=== PATIENT | male | born 1960 | race African-American/Black ===

== ENCOUNTER 2019-01-03 06:18 | Inpatient (IN) | payer MEDICAID, OTHER ==
[~2019-01-03] VITALS: Ht 182.9 cm; Wt 104.3 kg
[~2019-01-03 06:18] MED LIST: LEVO25TA9 PO; LURA80 PO; PALI6 PO
[2019-01-03] MEDS ORDERED: HALOPERIDOL 5 MG TABLET PO ONE (06:45)
[2019-01-03 07:02] LABS: BASOPHILS % (AUTO) 1.3 % (0.0-2.0); HEMATOCRIT 41.3 % (41-53); HEMOGLOBIN 13.8 g/dL (13.5-17.5); LYMPHOCYTES # (AUTO) 1.6 K/uL (1.0-4.8); LYMPHOCYTES % (AUTO) 25.6 % (22.0-44.0); MEAN CORPUSCULAR HEMOGLOBIN 31.1 pg (26.0-34.0); MEAN CORPUSCULAR HGB CONC 33.6 G/dL (31.0-37.0); MEAN CORPUSCULAR VOLUME 93 fL (80-100); MONOCYTES # (AUTO) 0.6 K/uL (0.1-1.0); MONOCYTES % (AUTO) 10.4 % (2.0-9.0); NEUTROPHILS # (AUTO) 3.8 K/uL (1.8-7.7); NEUTROPHILS % (AUTO) 60.7 % (40.0-70.0); PLATELET COUNT (AUTO) 147 K/uL (150-450); RED BLOOD CELL COUNT(AUTO) 4.46 MIL/uL (4.50-5.90); RED CELL DISTRIBUTION WIDTH 14.7 % (11.5-14.5)
[2019-01-03 07:09] LABS: ANION GAP 3 mmol/L (8-16); CALCIUM, TOTAL 8.9 mg/dL (8.8-10.5); CARBON DIOXIDE 32 mmol/L (22-29); CHLORIDE 107 mmol/L (98-107); CREATININE 1.52 mg/dL (0.60-1.30); GLOMERULAR FILTR. RATE CALC 58 mL/min (>60); GLUCOSE,RANDOM 88 mg/dL (70-110); POTASSIUM 4.3 mmol/L (3.5-5.1); SODIUM SERUM 142 mmol/L (136-145); UREA NITROGEN, BLOOD 24 mg/dL (7-18)
[2019-01-03 07:16] LABS: ALANINE AMINOTRANSFERASE 44 U/L (12-78); ALBUMIN 3.8 g/dL (3.4-5.0); ALKALINE PHOSPHATASE 63 U/L (46-116); ASPARTATE AMINOTRANSFERASE 43 U/L (15-37); BILIRUBIN,TOTAL 0.8 mg/dL (0.1-1.0); TOTAL PROTEIN, SERUM 7.7 g/dL (6.4-8.2)
[2019-01-03 09:36] LABS: BARBITURATE SCREEN, URINE NEGATIVE (NEGATIVE); BENZODIAZEPINES SCREEN,URINE NEGATIVE (NEGATIVE); CANNABINOID SCREEN,URINE POSITIVE (NEGATIVE); COCAINE SCREEN,URINE NEGATIVE (NEGATIVE); METHADONE SCREEN, URINE NEGATIVE (NEGATIVE); OPIATE SCREEN,URINE NEGATIVE (NEGATIVE); PHENCYCLIDINE SCREEN,URINE NEGATIVE (NEGATIVE)
[2019-01-03 09:45] LABS: AMPHET/METH SCREEN,URINE POSITIVE (NEGATIVE)
[2019-01-03] MEDS ORDERED: HALOPERIDOL LACTATE 5 MG/ML VIAL IM ONE (10:00)
[2019-01-03] MEDS ORDERED: HALOPERIDOL 5 MG TABLET PO PRN (10:00)
[2019-01-03] MEDS ORDERED: DiphenhydrAMINE HCL 50 MG/ML VIAL IM ONE (10:00)
[2019-01-03] MEDS ORDERED: LORazepam 2 MG/ML VIAL IM ONE (10:00)
[2019-01-03] MEDS ORDERED: ZOLPIDEM TARTRATE 10 MG TABLET PO PRN (10:00)
[2019-01-03] MEDS ORDERED: INFLUENZA VIRUS VACCINE QVS 2019-20 (3YR+)/PF 60 MCG/0.5 ML SYRINGE IM ONE (15:00)
[2019-01-04 08:00] VITALS: BP 150/90
[2019-01-04] MEDS ORDERED: PETROLATUM,WHITE 28 GM JELLY TP PRN (08:15)
[2019-01-04] MEDS ORDERED: ONDANSETRON HCL 4 MG TABLET PO PRN (08:15)
[2019-01-04] MEDS ORDERED: MAG HYDROX/AL HYDROX/SIMETH ES 30 ML SUSPENSION UDCUP PO PRN (08:15)
[2019-01-04] MEDS ORDERED: MAGNESIUM HYDROXIDE SUSPENSION 30 ML UDCUP PO PRN (08:15)
[2019-01-04] MEDS ORDERED: BACITRACIN 28.4 GM OINTMENT TP PRN (08:15)
[2019-01-04] MEDS ORDERED: ALBUTEROL SULFATE HFA 90 MCG/PUFF 8 GM INHALER IH PRN (08:15)
[2019-01-04] MEDS ORDERED: ACETAMINOPHEN 325 MG TABLET PO PRN (08:15)
[2019-01-04] MEDS ORDERED: LOPERAMIDE HCL 2 MG CAPSULE PO PRN (08:15)
[2019-01-04 08:43] LABS: CHOL/HDL RATIO 2.3 (4.2-7.3)
[2019-01-04] MEDS: OMEPRAZOLE 20 MG CAPSULE PO SCH (09:23)
[2019-01-04] MEDS: DOCUSATE SODIUM 100 MG CAPSULE PO SCH (09:23)
[2019-01-04] MEDS: LISINOPRIL 10 MG TABLET PO SCH ×2 (09:23→09:37)
[2019-01-04 16:05] VITALS: BP 129/83
[2019-01-04] MEDS: BENZOCAINE/MENTHOL LOZENGE MM PRN (20:13)
[2019-01-04] MEDS: LURASIDONE HCL 80 MG TABLET PO SCH (20:13)
[2019-01-04 20:34] VITALS: BP 152/84
[2019-01-04] MEDS ORDERED: LURASIDONE HCL 80 MG TABLET PO SCH (21:00)
[2019-01-04] MEDS: PHENOL 1.4% 177 ML SPRAY BOTTLE PO PRN (21:36)
[2019-01-04] MEDS: MAGNESIUM SULFATE 454 GM BOX PO PRN (21:45)
[2019-01-04] MEDS: LORazepam 2 MG TABLET PO PRN (21:50)
[2019-01-04] MEDS: IBUPROFEN 600 MG TABLET PO PRN (21:50)
[2019-01-04 21:53] VITALS: BP 143/107
[2019-01-04] MEDS ORDERED: AZITHROMYCIN 250 MG TABLET PO ONE (22:45)
[2019-01-04 22:57] VITALS: BP 166/100
[2019-01-05 00:32] VITALS: BP 182/112
[2019-01-05] MEDS: CloNIDine HCL 0.1 MG TABLET PO PRN (00:32)
[2019-01-05] MEDS: BENZOCAINE/MENTHOL LOZENGE MM PRN ×2 (01:00→05:04)
[2019-01-05 01:32] VITALS: BP 136/92
[2019-01-05] MEDS: LEVOTHYROXINE SODIUM 50 MCG TABLET PO SCH (07:01)
[2019-01-05 08:16] VITALS: BP 136/80
[2019-01-05] MEDS: OMEPRAZOLE 20 MG CAPSULE PO SCH (08:20)
[2019-01-05] MEDS: LISINOPRIL 10 MG TABLET PO SCH (08:20)
[2019-01-05] MEDS: AZITHROMYCIN 250 MG TABLET PO SCH (08:21)
[2019-01-05] MEDS: DOCUSATE SODIUM 100 MG CAPSULE PO SCH (08:21)
[2019-01-05] MEDS: MAGNESIUM SULFATE 454 GM BOX PO PRN (12:56)
[2019-01-05 16:00] VITALS: BP 133/94
[2019-01-05] MEDS: LURASIDONE HCL 80 MG TABLET PO SCH (21:16)
[2019-01-06] MEDS: LEVOTHYROXINE SODIUM 50 MCG TABLET PO SCH (06:16)
[2019-01-06 06:27] VITALS: BP 130/86
[2019-01-06 08:19] VITALS: BP 133/90
[2019-01-06] MEDS: LISINOPRIL 10 MG TABLET PO SCH (08:19)
[2019-01-06] MEDS: OMEPRAZOLE 20 MG CAPSULE PO SCH (08:19)
[2019-01-06] MEDS: DOCUSATE SODIUM 100 MG CAPSULE PO SCH (08:20)
[2019-01-06] MEDS: AZITHROMYCIN 250 MG TABLET PO SCH (08:20)
[2019-01-06] MEDS: BENZOCAINE/MENTHOL LOZENGE MM PRN (10:51)
[2019-01-06] MEDS: IBUPROFEN 600 MG TABLET PO PRN (14:26)
[2019-01-06] MEDS: PHENOL 1.4% 177 ML SPRAY BOTTLE PO PRN (14:26)
[2019-01-06 16:05] VITALS: BP 148/89
[2019-01-06] MEDS: LURASIDONE HCL 80 MG TABLET PO SCH (21:59)
[2019-01-07 04:44] VITALS: BP 142/88
[2019-01-07] MEDS: LEVOTHYROXINE SODIUM 50 MCG TABLET PO SCH (06:15)
[2019-01-07 08:15] VITALS: BP 131/77
[2019-01-07] MEDS: DOCUSATE SODIUM 100 MG CAPSULE PO SCH (08:27)
[2019-01-07] MEDS: OMEPRAZOLE 20 MG CAPSULE PO SCH (08:27)
[2019-01-07] MEDS: AZITHROMYCIN 250 MG TABLET PO SCH (08:27)
[2019-01-07] MEDS: DiphenhydrAMINE HCL 25 MG CAPSULE PO PRN (15:12)
[2019-01-07] MEDS: IBUPROFEN 800 MG TABLET PO SCH (15:12)
[2019-01-07 18:41] VITALS: BP 100/63
[2019-01-07] MEDS: LURASIDONE HCL 80 MG TABLET PO SCH (20:24)
[2019-01-08] MEDS: IBUPROFEN 800 MG TABLET PO SCH ×3 (00:03→16:00)
[2019-01-08 02:43] VITALS: BP 135/76
[2019-01-08] MEDS: LEVOTHYROXINE SODIUM 50 MCG TABLET PO SCH (06:13)
[2019-01-08 08:31] VITALS: BP 126/79
[2019-01-08] MEDS: DOCUSATE SODIUM 100 MG CAPSULE PO SCH (09:38)
[2019-01-08] MEDS: OMEPRAZOLE 20 MG CAPSULE PO SCH (09:38)
[2019-01-08] MEDS: AZITHROMYCIN 250 MG TABLET PO SCH (09:38)
[2019-01-08 16:00] VITALS: BP 122/90
[2019-01-08] MEDS ORDERED: DiphenhydrAMINE HCL 25 MG CAPSULE PO ONE (20:00)
[2019-01-08] MEDS: LURASIDONE HCL 80 MG TABLET PO SCH (20:15)
[2019-01-09] MEDS: IBUPROFEN 800 MG TABLET PO SCH ×3 (01:37→16:06)
[2019-01-09] MEDS: LEVOTHYROXINE SODIUM 50 MCG TABLET PO SCH (06:30)
[2019-01-09] MEDS: DOCUSATE SODIUM 100 MG CAPSULE PO SCH (08:34)
[2019-01-09] MEDS: OMEPRAZOLE 20 MG CAPSULE PO SCH (08:34)
[2019-01-09 09:08] VITALS: BP 138/78
[2019-01-09 16:04] VITALS: BP 176/111
[2019-01-09] MEDS: CloNIDine HCL 0.1 MG TABLET PO PRN (16:06)
[2019-01-09 17:10] VITALS: BP 156/94
[2019-01-09] MEDS: LORazepam 2 MG TABLET PO PRN (17:11)
[2019-01-09 18:03] VITALS: BP 110/70
[2019-01-09] MEDS: LURASIDONE HCL 80 MG TABLET PO SCH (20:19)
[2019-01-10] MEDS: IBUPROFEN 800 MG TABLET PO SCH ×2 (01:00→09:08)
[2019-01-10] MEDS: LEVOTHYROXINE SODIUM 50 MCG TABLET PO SCH (06:17)
[2019-01-10 06:53] VITALS: BP 124/77
[2019-01-10 08:10] VITALS: BP 137/90
[2019-01-10] MEDS: DOCUSATE SODIUM 100 MG CAPSULE PO SCH (09:07)
[2019-01-10] MEDS: ATENOLOL 25 MG TABLET PO SCH (09:07)
[2019-01-10] MEDS: OMEPRAZOLE 20 MG CAPSULE PO SCH (09:08)
[2019-01-10 17:03] VITALS: BP 137/86
[2019-01-10] MEDS: PHENOL 1.4% 177 ML SPRAY BOTTLE PO PRN (17:06)
[2019-01-10] MEDS: LORazepam 2 MG TABLET PO PRN (17:06)
[2019-01-10] MEDS: DiphenhydrAMINE HCL 25 MG CAPSULE PO PRN (17:06)
[2019-01-10] MEDS: LURASIDONE HCL 80 MG TABLET PO SCH (20:49)
[2019-01-11] MEDS: LEVOTHYROXINE SODIUM 50 MCG TABLET PO SCH (06:17)
[2019-01-11 06:20] VITALS: BP 138/89
[2019-01-11 08:28] VITALS: BP 124/78
[2019-01-11] MEDS: OMEPRAZOLE 20 MG CAPSULE PO SCH (08:34)
[2019-01-11] MEDS: DOCUSATE SODIUM 100 MG CAPSULE PO SCH (08:34)
[2019-01-11] MEDS: ATENOLOL 25 MG TABLET PO SCH (08:34)
[2019-01-11 16:04] VITALS: BP 131/76
[2019-01-11] MEDS: LORazepam 2 MG TABLET PO PRN (16:13)
[2019-01-11] MEDS: DiphenhydrAMINE HCL 25 MG CAPSULE PO PRN (16:13)
[2019-01-11] MEDS: PHENOL 1.4% 177 ML SPRAY BOTTLE PO PRN (16:13)
[2019-01-11 16:16] VITALS: BP 133/73
[2019-01-11] MEDS: LURASIDONE HCL 80 MG TABLET PO SCH (20:50)
[2019-01-12 00:41] VITALS: BP 128/80
[2019-01-12] MEDS: LEVOTHYROXINE SODIUM 50 MCG TABLET PO SCH (07:12)
[2019-01-12] MEDS: DOCUSATE SODIUM 100 MG CAPSULE PO SCH (08:32)
[2019-01-12] MEDS: OMEPRAZOLE 20 MG CAPSULE PO SCH (08:32)
[2019-01-12] MEDS: ATENOLOL 25 MG TABLET PO SCH (08:32)
[2019-01-12 09:57] VITALS: BP 120/66
[2019-01-12] MEDS ORDERED: ATEN25TA PO (13:32)
== END 2019-01-12 15:28 | disposition home or self-care (01) | DRG 750 ==
LOC: EMS 06:18 → B3A 11:16
PROVIDERS: ADMIT Psychiatry & Neurology Psychiatry; ATTEND Psychiatry & Neurology Psychiatry
DX: F20.0 Paranoid schizophrenia (principal); R45.851 Suicidal ideations; F15.90 Other stimulant use, unspecified, uncomplicated; G47.00 Insomnia, unspecified; K59.00 Constipation, unspecified; T78.3XXA Angioneurotic edema, initial encounter; Z79.899 Other long term (current) drug therapy; X58.XXXA Exposure to other specified factors, initial encounter; Y93.89 Activity, other specified; Y92.89 Other specified places as the place of occurrence of the external cause; Y99.8 Other external cause status
CPT/HCPCS: G0480; J1200; J1630; J2060

== ENCOUNTER 2019-01-06 16:01 | Emergency (ER) | payer MEDICAID, OTHER ==
[~2019-01-06] VITALS: Ht 185.4 cm; Wt 97.7 kg
[2019-01-06] MEDS ORDERED: FAMOTIDINE 10 MG/ML 2 ML VIAL IVP ONE (16:30)
[2019-01-06] MEDS ORDERED: DiphenhydrAMINE HCL 50 MG/ML VIAL IVP ONE (16:30)
[2019-01-06] MEDS ORDERED: MethylPREDNISolone SOD SUCC 125 MG/2 ML VIAL IVP ONE (16:30)
[2019-01-06 18:17] LABS: BASOPHILS % (AUTO) 1.2 % (0.0-2.0); EOSINOPHILS % (AUTO) 1.4 % (1.0-6.0); HEMATOCRIT 54.8 % (41-53); HEMOGLOBIN 18.1 g/dL (13.5-17.5); LYMPHOCYTES # (AUTO) 1.5 K/uL (1.0-4.8); LYMPHOCYTES % (AUTO) 18.9 % (22.0-44.0); MEAN CORPUSCULAR HEMOGLOBIN 30.8 pg (26.0-34.0); MEAN CORPUSCULAR VOLUME 93 fL (80-100); MONOCYTES # (AUTO) 0.6 K/uL (0.1-1.0); NEUTROPHILS # (AUTO) 5.7 K/uL (1.8-7.7); NEUTROPHILS % (AUTO) 70.5 % (40.0-70.0); RED BLOOD CELL COUNT(AUTO) 5.87 MIL/uL (4.50-5.90); RED CELL DISTRIBUTION WIDTH 14.9 % (11.5-14.5)
[2019-01-06 18:27] LABS: CALCIUM, TOTAL 9.9 mg/dL (8.8-10.5); CREATININE 1.55 mg/dL (0.60-1.30)
[2019-01-06 18:33] LABS: ALBUMIN 3.9 g/dL (3.4-5.0); BILIRUBIN,TOTAL 0.9 mg/dL (0.1-1.0); TOTAL PROTEIN, SERUM 8.6 g/dL (6.4-8.2)
[2019-01-06 18:59] LABS: PLATELET COUNT (AUTO) 193 K/uL (150-450); PLATELET MORPHOLOGY COMMENT GIANT PLTS PRESENT
[2019-01-06 21:09] VITALS: BP 147/95
== END 2019-01-06 21:30 | disposition home or self-care (01) ==
LOC: EMS 16:03
DX: T78.3XXA Angioneurotic edema, initial encounter (principal); F12.90 Cannabis use, unspecified, uncomplicated; F15.90 Other stimulant use, unspecified, uncomplicated; F20.9 Schizophrenia, unspecified; Z79.899 Other long term (current) drug therapy; Z88.8 Allergy status to other drugs, medicaments and biological substances; X58.XXXA Exposure to other specified factors, initial encounter
CPT/HCPCS: 36415; 80053; 85025; 96374; 96375; 99283; J2930; J3490; J1200